=== PATIENT | male | born 1995 | race Two or more races ===

== ENCOUNTER 2019-06-23 22:54 | Emergency (ER) | payer OTHER ==
[~2019-06-23] VITALS: Ht 170.2 cm; Wt 90.7 kg
--- NOTE | 2019-06-23 23:14 | Emergency Room Report ---
History of Present Illness General Chief Complaint: Abdominal Pain Source: Patient Present Illness [facility] This is a 23-year-old male with no past medical history. He presents with chief complaint abdominal and fever. Onset yesterday. Pain was epigastric area. Now to right lower quadrant. He has subjective fever. Better with ibuprofen. Decreased appetite. Did not eat much today. Pain is 7 out of 10. Worse with movement and palpation. Nausea but no vomiting. 1 episode of diarrhea. Denies any other complaint. Allergies: Coded Allergies: No Known Allergies (Unverified , 06/23/19) COVID-19 Screening Contact w/high risk pt: No Recent Travel to affected area: No Experienced COVID-19 symptoms?: Yes COVID-19 symptoms experienced: Fever (T>100.4F or >38C) Patient History Past Medical History: none, see triage record, old chart reviewed Past Surgical History: none Pertinent Family History: none Social History: Denies: smoking Immunizations: other Reviewed Nursing Documentation: PMH: Agreed; PSxH: Agreed Nursing Documentation-PMH Past Medical History: No Stated History Review of Systems Constitutional: Reports: fever Eye: Denies: eye pain, blurred vision ENT: Denies: ear pain, nose congestion, throat swelling Respiratory: Denies: cough, shortness of breath Cardiovascular: Denies: chest pain, palpitations Gastrointestinal: Reports: abdominal pain, diarrhea; Denies: nausea, vomiting Musculoskeletal: Denies: back pain, joint pain Skin: Denies: rash Neurological: Denies: headache, numbness Endocrine: Denies: increased thirst, increased urine Hematologic/Lymphatic: Denies: easy bruising All Other Systems: negative except mentioned in HPI Physical Exam Vital Signs Date Time Temp Pulse Resp B/P (MAP) Pulse Ox O2 Delivery O2 Flow Rate FiO2 06/23/19 22:55 99.7 108 16 104/67 (79) 97 Room Air Vitals unremarkable Sp02 EP Interpretation: reviewed, normal General Appearance: well appearing, no apparent distress, alert Head: normocephalic, atraumatic Eyes: bilateral eye PERRL, bilateral eye EOMI ENT: hearing grossly normal, normal pharynx Neck: full range of motion, supple, no meningismus Respiratory: chest non-tender, lungs clear, normal breath sounds Cardiovascular #1: regular rate, rhythm, no murmur Gastrointestinal: normal bowel sounds, no mass, no organomegaly, no bruit, non- distended, tenderness - Right lower quadrant Musculoskeletal: back normal, normal range of motion, gait/station normal Psychiatric: mood/affect normal Medical Decision Making Diagnostic Impression: Primary Impression: Abdominal pain Qualified Codes: R10.84 - Generalized abdominal pain Additional Impression: Diarrhea Qualified Codes: R19.7 - Diarrhea, unspecified ER Course Patient presents with fever abdominal pain and diarrhea. No evidence of acute abdomen or appendicitis. No obstruction. Because of the COVID pandemic, this could also be 1 of the cause of the infection. I will swab the patient to see if he has COVID infection. will discharge home. This patient was evaluated in the context of the global COVID-19 pandemic, which necessitated consideration that the patient might be at risk for infection with the [id number] virus that causes COVID-19. Institutional protocols and algorithms that pertain to the evaluation of patients at risk for COVID-19 and the state of rapid change based on information released by multiple regulatory bodies including the CDC and federal and state organizations. These policies and algorithms were followed during the patient' s care in the ED. CT/MRI/US Diagnostic Results CT/MRI/US Diagnostic Results : Imaging Test Ordered: CT abdomen pelvis Impression Read by radiologist. Negative. Last Vital Signs Date Time Temp Pulse Resp B/P (MAP) Pulse Ox O2 Delivery O2 Flow Rate FiO2 06/23/19 22:55 99.7 108 16 104/67 (79) 97 Room Air Status: improved Disposition: HOME, SELF-CARE Condition: Stable Scripts Ibuprofen* (MOTRIN*) 600 Mg Tablet 600 MG ORAL Q6H PRN for FOR PAIN, #20 TAB 0 Refills Prov: Ralph Poole MD 06/24/19 Referrals: [facility]ERR[facility] (PCP) Patient Instructions: Abdominal Pain, Adult Additional Instructions: Follow-up with your doctor in 2 to 3 days if not better. Return if symptoms worsen. A COVID 19 test was sent. Someone will call you in 2 to 3 days with results. Ralph Poole MD June 23, 2019 23:14
[2019-06-23] MEDS ORDERED: Ketorolac 30mg Inj IV ONE (23:15)
[2019-06-23 23:25] VITALS: BP 104/67
[2019-06-23 23:26] LABS: APPEARANCE,URINE CLEAR; BILIRUBIN, URINE NEGATIVE (NEGATIVE); COLOR,URINE PALE YELLOW; GLUCOSE, URINE (UA) NEGATIVE (NEGATIVE); KETONES,URINE NEGATIVE (NEGATIVE); LEUKOCYTE ESTERASE ,URINE NEGATIVE (NEGATIVE); NITRITE,URINE NEGATIVE (NEGATIVE); PH,URINE 5 (4.5-8.0); PROTEIN,URINE NEGATIVE (NEGATIVE); UROBILINOGEN,URINE NORMAL MG/DL (0.0-1.0)
[2019-06-23 23:27] LABS: HEMATOCRIT 45.7 % (42.0-52.0); HEMOGLOBIN 16.4 G/DL (14.2-18.0); MEAN CORPUSCULAR VOLUME 82 FL (80-99); PLATELET COUNT 145 K/UL (150-450); RED CELL DISTRIBUTION WIDTH 11.9 % (11.6-14.8); WHITE BLOOD COUNT 9.5 K/UL (4.8-10.8)
[2019-06-23 23:37] LABS: ANION GAP 10 mmol/L (5-15); BLOOD UREA NITROGEN 13 mg/dL (7-18); CALCIUM 8.8 MG/DL (8.5-10.1); CARBON DIOXIDE 24 MMOL/L (21-32); CHLORIDE 105 MMOL/L (98-107); CREATININE 1.3 MG/DL (0.55-1.30); SODIUM 139 MMOL/L (136-145)
--- NOTE | 2019-06-24 00:02 | Diagnostic Imaging Report ---
EXAM: CT Abdomen and Pelvis Without Intravenous Contrast CLINICAL HISTORY: ABD PAIN TECHNIQUE: Axial computed tomography images of the abdomen and pelvis without intravenous contrast. CTDI is 8 mGy and DLP is 459 mGy-cm. One or more of the following dose reduction techniques were used: automated exposure control, adjustment of the mA and/or kV according to patient size, use of iterative reconstruction technique. COMPARISON: No relevant prior studies available. FINDINGS: Lung bases: No mass. No consolidation. ABDOMEN: Liver: Enlarged. Gallbladder and bile ducts: Unremarkable. Pancreas: No ductal dilation. Spleen: Unremarkable. Adrenals: Unremarkable. Kidneys and ureters: No obstructing stones. No hydronephrosis. Stomach and bowel: No bowel obstruction. No bowel wall thickening. PELVIS: Appendix: No evidence of appendicitis. Bladder: No stones. Reproductive: Unremarkable. ABDOMEN and PELVIS: Intraperitoneal space: Unremarkable. Bones/joints: No acute fractures. Soft tissues: Unremarkable. Vasculature: No abdominal aortic aneurysm. Lymph nodes: No enlarged lymph nodes. IMPRESSION: No acute findings. Hepatomegaly.
[2019-06-24] MEDS ORDERED: IBUPROFEN600 M1 ORAL (00:21)
[2019-06-24 00:25] VITALS: BP 104/67
== END 2019-06-24 00:25 | disposition home or self-care (01) ==
LOC: EMR 23:09
DX: R10.84 Generalized abdominal pain (principal); R19.7 Diarrhea, unspecified; R50.9 Fever, unspecified
CPT/HCPCS: 36415; 74176; 80048; 81003; 85025; 87635; 96361; 96374; 96375; J1885; J2405; J7030; Z7502; 99284

== ENCOUNTER 2019-08-25 14:55 | Emergency (ER) | payer MEDICAID, OTHER ==
[~2019-08-25] VITALS: Ht 170.2 cm; Wt 90.7 kg
[~2019-08-25 14:55] MED LIST: CLARITIN-D 121 EAC1 ORAL; IBUPROFEN600 M1 ORAL; PROMETHAZI6.25 MG/1 ORAL; TYLENOL EXTRA500 MG ORAL; VENTOLIN HFA18 GM INH; ZITHROMAX250 MG ORAL
--- NOTE | 2019-08-25 15:11 | NUR ---
ED Nurse Pt ambulated to ED from home d/t "feeling weak" and cough going on for few days. Afebrile on triage. VSS. Placed at the tent.
[2019-08-25 15:23] VITALS: BP 108/63
--- NOTE | 2019-08-25 15:37 | Emergency Room Report ---
History of Present Illness General Chief Complaint: Generalized Weakness Source: Patient Present Illness HPI 24-year-old male with no past medical history presents with fatigue, cough, sore throat for 1 week. He also reports he has lost the sense of taste. Patient was here a week ago and took all prescribed medications including a Z- deana but he is still having symptoms, no worse than before. He denies any fever , vomiting, diarrhea, shortness of breath, chest pain, difficulty swallowing. Denies COVID exposure or recent travel. 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[employer] BURNER: Yes - May 2019 COVID-19 Screening: Negative COVID-19 COVID-19 Testing Source: Nasopharynx Patient History Past Medical History: see triage record Reviewed Nursing Documentation: PMH: Agreed; PSxH: Agreed Nursing Documentation-PMH Past Medical History: No Stated History Review of Systems All Other Systems: negative except mentioned in HPI Physical Exam Vital Signs Date Time Temp Pulse Resp B/P (MAP) Pulse Ox O2 Delivery O2 Flow Rate FiO2 08/25/19 15:10 98.4 87 19 108/63 (78) 96 Room Air Sp02 EP Interpretation: reviewed, normal General Appearance: normal inspection, well appearing, no apparent distress, alert, GCS 15, non-toxic ENT: EOM grossly intact, normal pharynx, normal voice, TMs + canals normal, uvula midline Neck: normal inspection, full range of motion, supple, thyroid normal, no meningismus, no bony tend Respiratory: chest non-tender, lungs clear, normal breath sounds, no respiratory distress Cardiovascular #1: normal peripheral pulses, regular rate, rhythm Musculoskeletal: normal inspection, normal range of motion, gait/station normal Neurologic: alert, oriented x3, speech normal Psychiatric: judgement/insight normal, mood/affect normal Skin: no rash, normal color, warm/dry Lymphatic: no adenopathy Medical Decision Making PA Attestation Dr. Mckeon is my supervising physician whom patient management and care has been discussed with. Diagnostic Impression: Primary Impression: Viral syndrome ER Course Pt. presents to the ED c/o sore throat, fatigue, cough, and loss of the sense of taste. Ddx considered but are not limited to COVID-19, pneumonia, strep pharyngitis, mono, bronchitis, asthma, peritonsillar abscess, other viral syndrome. Vital signs: are WNL, pt. is afebrile H&PE are most consistent with viral syndrome, possibly COVID-19. ORDERS: none required at this time, the diagnosis is clinical ED INTERVENTIONS: None required at this time. DISCHARGE: At this time pt. is stable for d/c to home. He is well-appearing, nontoxic, no hypoxia, afebrile. No respiratory distress. Patient redirected to [facility] for COVID-19 testing. Advised to self isolate at home for 2 weeks or as long as symptoms persist. Will provide printed patient care instructions , and any necessary prescriptions. Advised to follow up outpatient in 1-2 days. Care plan and follow up instructions have been discussed with the patient prior to discharge. Last Vital Signs Date Time Temp Pulse Resp B/P (MAP) Pulse Ox O2 Delivery O2 Flow Rate FiO2 08/25/19 15:10 98.4 87 19 108/63 (78) 96 Room Air Disposition: HOME, SELF-CARE Condition: Stable Scripts Benzonatate* (BENZONATATE*) 200 Mg Capsule 200 MG ORAL THREE TIMES A DAY, #30 PERLE Prov: Ivy Álvarez N. P.A. 08/25/19 Benzocaine/Menthol (CHLORASEPTIC MAX LOZENGE) 1 Each Lozenge 1 EACH MM Q2H, #14 LOZENGE Prov: Ivy Álvarez N. P.A. 08/25/19 Ivy Álvarez N. P.ALinsey Aug 25, 2019 15:37
[2019-08-25] MEDS ORDERED: BENZONATATE200 MG ORAL (15:40)
[2019-08-25] MEDS ORDERED: CHLORASEPTIC M1 EACH MM (15:40)
[2019-08-25 15:49] VITALS: BP 110/66
--- NOTE | 2019-08-25 15:49 | NUR ---
ER DISCHARGE NOTE: Pt is cleared to be discharged per ERPA, pt is aox4, on room air, with stable vital signs. pt was given dc and prescription instructions, pt was able to verbalize understanding, pt id band removed. pt is able to ambulate with steady gait. pt took all belongings.
== END 2019-08-25 15:49 | disposition home or self-care (01) ==
LOC: EDBD 14:55 → EMR 15:15
DX: B34.9 Viral infection, unspecified (principal)
CPT/HCPCS: 99282

== ENCOUNTER 2019-10-21 03:07 | Emergency (ER) | payer OTHER ==
[~2019-10-21] VITALS: Ht 170.2 cm; Wt 104.3 kg
[~2019-10-21 03:07] MED LIST changes: +BENZONATATE200 MG ORAL; +CHLORASEPTIC M1 EACH MM
[2019-10-21 03:20] VITALS: BP 126/74
--- NOTE | 2019-10-21 03:20 | NUR ---
Note enzo in EDM - 10/21/19 at 0411 by [email or web address] Nurse Note: Patient walked into ED from home for c/o lower back pain onset three days ago. Patient denies any injury or trauma to the area. Pain is exacerbated when he ambulates. Patient also reports feeling tremors, appears midly anxious. Patient was tested for COVID in [place] and was positive two months ago.
--- NOTE | 2019-10-21 03:20 | NUR ---
Nurse Note: Pt arrived c/o lower back pain with no evident trauma approximately 3 days ago. Pt stated he was bending foward to put on his shoes and acute pain occured; 10/10 aching pain. Pt stated he has not worked out in over a week. Denies trauma, denies prior injury to back. Pt has sensation on bilateral lower extremities. Pt ambulates with steady gait. All safety measures met; will continue to [facility].
[2019-10-21] MEDS ORDERED: HYDROcodone/Acetamin 5/325 tab ORAL ONE (03:30)
[2019-10-21] MEDS ORDERED: HYDROCODON-ACE1 EA15 ORAL (03:30)
[2019-10-21] MEDS ORDERED: IBUPROFEN600 M1 ORAL (03:30)
--- NOTE | 2019-10-21 03:31 | Emergency Room Report ---
History of Present Illness General Chief Complaint: Lower Back Pain or Injury Source: Patient Present Illness [facility] This a 24-year-old male with no past medical history who presents with chief complaint of low back pain. Onset about 4 to 5 days ago. He said he bent over to pick something and felt pain in his lower back. Localized to that area. No radiation. No incontinence of bowel or urine. No fever chills. Pain is 8 out of 10. Can get in a comfortable position. Denies any other complaint. 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 COVID-19 Screening: Positive COVID-19 COVID-19 Testing Source: in [place] 2 months ago Patient History Past Medical History: see triage record, old chart reviewed Past Surgical History: none Pertinent Family History: none Social History: Denies: smoking Immunizations: other Reviewed Nursing Documentation: PMH: Agreed; PSxH: Agreed Nursing Documentation-PMH Past Medical History: No Stated History Review of Systems Eye: Denies: eye pain, blurred vision ENT: Denies: ear pain, nose congestion, throat swelling Respiratory: Denies: cough, shortness of breath Cardiovascular: Denies: chest pain, palpitations Gastrointestinal: Denies: abdominal pain, diarrhea, nausea, vomiting Musculoskeletal: Reports: back pain; Denies: joint pain Skin: Denies: rash Neurological: Denies: headache, numbness Endocrine: Denies: increased thirst, increased urine Hematologic/Lymphatic: Denies: easy bruising All Other Systems: negative except mentioned in HPI Physical Exam Vital Signs Date Time Temp Pulse Resp B/P (MAP) Pulse Ox O2 Delivery O2 Flow Rate FiO2 10/21/19 03:11 99.0 78 18 126/74 (91) 98 Room Air Vitals normal Sp02 EP Interpretation: reviewed, normal General Appearance: well appearing, no apparent distress, alert Head: normocephalic, atraumatic Eyes: bilateral eye PERRL, bilateral eye EOMI ENT: hearing grossly normal, normal pharynx Neck: full range of motion, supple, no meningismus Respiratory: chest non-tender, lungs clear, normal breath sounds Cardiovascular #1: regular rate, rhythm, no murmur Gastrointestinal: normal bowel sounds, non tender, no mass, no organomegaly, no bruit, non-distended Musculoskeletal: back normal - Tenderness to the lower lumbar area., normal range of motion, gait/station normal Psychiatric: mood/affect normal Medical Decision Making Diagnostic Impression: Primary Impression: Low back pain Qualified Codes: M54.5 - Low back pain ER Course She presents with lower back pain. No red flags indicate cauda equina syndrome , spinal epidural abscess or neoplastic process. Explained to the patient that x-rays would not help diagnose this. He would need an MRI if symptoms continue. Will discharge home. Last Vital Signs Date Time Temp Pulse Resp B/P (MAP) Pulse Ox O2 Delivery O2 Flow Rate FiO2 10/21/19 03:11 99.0 78 18 126/74 (91) 98 Room Air Status: improved Disposition: HOME, SELF-CARE Condition: Stable Scripts Ibuprofen* (MOTRIN*) 600 Mg Tablet 600 MG ORAL Q6H PRN for For Pain, #30 TAB 0 Refills Prov: Ralph Poole MD 10/21/19 Hydrocodone/Acetaminophen 5-325* (HYDROCODONE/ACETAMINOPHEN 5-325*) 1 Each Tablet 1 TAB ORAL Q6H PRN for For Pain, #20 TAB 0 Refills Prov: Ralph Poole MD 10/21/19 Patient Instructions: Back Pain, Adult Additional Instructions: No heavy lifting. Follow-up with your doctor in 7 days. If symptoms continue, you may need an MRI of your back. Return if symptoms worsen. Ralph Poole MD Oct 21, 2019 03:31
[2019-10-21 03:45] VITALS: BP 126/74
--- NOTE | 2019-10-21 03:45 | NUR ---
ER DISCHARGE NOTE: Patient is cleared to be discharged per ERMD. Pt is aox4, on room air, with stable vital signs. Pt was given dc and prescription instructions. Pt was able to verbalize understanding; instructed pt to follow up with primary care provider within one week. Pt ID band removed Pt is able to ambulate with steady gait. Pt took all belongings.
[2019-10-23] MEDS ORDERED: IBU800 MG PO (15:13)
[2019-10-23] MEDS ORDERED: LIDODERM700 M1 TOPIC (15:13)
[2019-10-23] MEDS ORDERED: ROBAXIN-500MG ORAL (15:13)
== END 2019-10-21 03:35 | disposition home or self-care (01) ==
LOC: EMR 03:32
DX: M54.5 Low back pain (principal); Z86.19 Personal history of other infectious and parasitic diseases
CPT/HCPCS: 99282